=== PATIENT | female | born 1965 | race African-American/Black ===

== ENCOUNTER 2025-03-06 17:25 | Emergency (ER) | payer SELFPAY ==
[~2025-03-06] VITALS: Ht 167.6 cm; Wt 64.0 kg
[2025-03-06 17:31] VITALS: BP 138/89; PULSE 100; RESP 18; TEMP 98; O2SAT 98
[2025-03-06] MEDS: ACETAMINOPHEN 325MG TABLET PO ONE (18:13)
[2025-03-06] MEDS ORDERED: NAPR-677 MT (18:27)
== END 2025-03-06 19:15 | disposition home or self-care (01) ==
LOC: ER 17:25
DX: R51.9 Headache, unspecified (principal); R11.2 Nausea with vomiting, unspecified; R03.0 Elevated blood-pressure reading, without diagnosis of hypertension; Z85.6 Personal history of leukemia; Y00.XXXA Assault by blunt object, initial encounter; Y93.89 Activity, other specified; Y92.89 Other specified places as the place of occurrence of the external cause; Y99.8 Other external cause status
CPT/HCPCS: 70486; 99284

== ENCOUNTER 2025-03-06 20:49 | Inpatient (IN) | payer SELFPAY ==
[~2025-03-06] VITALS: Ht 162.6 cm; Wt 59.9 kg
[~2025-03-06 20:49] MED LIST: NAPR-677 MT
[2025-03-06] MEDS: ONDANSETRON HCL 4MG/2ML INJ IV ONE (22:47)
[2025-03-06] MEDS: SODIUM CHLORIDE 0.9% 1,000 ML IV ONE (22:47)
[2025-03-06 23:18] LABS: BASOPHILS % 0.7 % (0.0-2.0); EOSINOPHILS % 2.2 % (0.0-5.0); HEMATOCRIT. 38.8 % (36.0-48.0); HEMOGLOBIN. 12.2 g/dL (12.0-16.0); LYMPHOCYTES % 32.0 % (20.0-50.0); MEAN PLATELET VOLUME 7.6 fl (7.4-10.4); MONOCYTES % 9.8 % (2.0-8.0); NEUTROPHILS % 55.3 % (40.0-76.0); PLATELET 282 x1000/uL (130-400); RED BLOOD CELL COUNT 4.40 mill/uL (4.2-5.4); RED CELL DISTRIBUTION WIDTH 17.1 % (11.6-14.6)
[2025-03-06 23:35] LABS: CREATININE 0.5 mg/dL (0.6-1.0); UREA NITROGEN BLOOD 6 mg/dL (9-23)
[2025-03-06 23:36] LABS: PROTEIN TOTAL 7.5 g/dL (6.0-8.3)
[2025-03-06 23:37] LABS: ASPARTATE AMINOTRANSFERASE 173 IU/L (<34); BILIRUBIN DIRECT 0.2 mg/dL (<=3.0); TROPONIN I HIGH SENSITIVITY < 4 ng/L (3.0-34)
[2025-03-06 23:38] LABS: BILIRUBIN TOTAL 0.4 mg/dL (0.1-1.0)
[2025-03-07] MEDS: GUAIFENESIN 600MG ER TABLET PO NR (03:13)
[2025-03-07 03:19] VITALS: BP 137/87; PULSE 97; RESP 17; TEMP 37.0296
[2025-03-07] MEDS ORDERED: GUAIFENESIN 200MG/10ML SUGAR FREE UDC PO PRN (03:30)
[2025-03-07] MEDS ORDERED: DOCUSATE SODIUM 100MG CAPSULE PO PRN (03:30)
[2025-03-07] MEDS ORDERED: ONDANSETRON HCL 4MG/2ML INJ IV PRN (03:30)
[2025-03-07] MEDS ORDERED: ACETAMINOPHEN 325MG TABLET PO PRN (03:30)
[2025-03-07] MEDS ORDERED: MAGNESIUM/ALUMINUM HYDROXIDE/SIMETHICONE 30ML UDC PO PRN (03:30)
[2025-03-07] MEDS: SODIUM CHLORIDE 0.9% 1,000 ML IV SCH (03:50)
[2025-03-07 05:43] VITALS: PULSE 75; RESP 20; O2SAT 98
[2025-03-07] MEDS: IPRATROPIUM/ALBUTEROL 0.5-3(2.5)MG/3ML NEB HHN PRN (05:43)
[2025-03-07] MEDS ORDERED: AZITHROMYCIN 500MG/250ML 250 ML IV SCH (09:00)
[2025-03-07] MEDS: PANTOPRAZOLE SODIUM 40 MG/VIAL IV SCH (10:29)
[2025-03-07] MEDS: ENOXAPARIN 40MG/0.4ML SYR SUBCUT SCH (10:30)
[2025-03-07 12:00] VITALS: BP 131/77; PULSE 69; RESP 20; TEMP 37.1; O2SAT 100
[2025-03-07] MEDS: ACETAMINOPHEN 325MG TABLET PO PRN (13:20)
[2025-03-07] MEDS: IPRATROPIUM/ALBUTEROL 0.5-3(2.5)MG/3ML NEB HHN SCH (13:21)
[2025-03-07] MEDS: GUAIFENESIN/DM 600MG/30MG ER TAB 12HR PO PRN (13:21)
[2025-03-07 13:35] LABS: CREATININE 0.5 mg/dL (0.6-1.0); TROPONIN I HIGH SENSITIVITY < 4 ng/L (3.0-34); UREA NITROGEN BLOOD < 5 mg/dL (9-23)
[2025-03-07 13:36] LABS: LACTATE DEHYDROGENASE 252 IU/L (120-246)
[2025-03-07 13:37] LABS: PHOSPHORUS 3.3 mg/dL (2.5-4.9)
[2025-03-07 13:39] LABS: T4 FREE 0.87 ng/dL (0.89-1.76)
[2025-03-07 16:00] VITALS: BP_SYST 117; BP_SYST 125; BP_DIAS 81; BP_DIAS 82; PULSE 74; PULSE 76; RESP 18; RESP 19; TEMP 36.6; TEMP 37; O2SAT 100; O2SAT 99
[2025-03-07 19:47] LABS: INR 1.0
[2025-03-07 20:00] VITALS: BP 119/83; PULSE 85; RESP 17; TEMP 36.3; O2SAT 100
[2025-03-08] VITALS: BP 122/84; PULSE 72; RESP 18; TEMP 36.1; O2SAT 100
[2025-03-08 04:00] VITALS: BP 124/85; PULSE 62; RESP 18; TEMP 36.6; O2SAT 100
[2025-03-08 05:53] LABS: BASOPHILS % 0.7 % (0.0-2.0); EOSINOPHILS % 2.4 % (0.0-5.0); HEMATOCRIT. 35.3 % (36.0-48.0); HEMOGLOBIN. 11.2 g/dL (12.0-16.0); LYMPHOCYTES % 25.9 % (20.0-50.0); MEAN PLATELET VOLUME 8.0 fl (7.4-10.4); MONOCYTES % 11.8 % (2.0-8.0); NEUTROPHILS % 59.2 % (40.0-76.0); PLATELET 249 x1000/uL (130-400); RED BLOOD CELL COUNT 3.99 mill/uL (4.2-5.4); RED CELL DISTRIBUTION WIDTH 16.8 % (11.6-14.6)
[2025-03-08 05:54] LABS: INR 1.0
[2025-03-08 05:59] LABS: CREATININE 0.6 mg/dL (0.6-1.0); TRIGLYCERIDE 54 mg/dL (0-150); UREA NITROGEN BLOOD < 5 mg/dL (9-23)
[2025-03-08 06:00] LABS: LDL CHOLESTEROL 77 mg/dL (5-100)
[2025-03-08 08:00] VITALS: BP 124/74; PULSE 79; RESP 18; TEMP 36.5; O2SAT 100
[2025-03-08] MEDS ORDERED: DOCU-422 PO (09:46)
[2025-03-08] MEDS ORDERED: DEXTL PO (09:46)
[2025-03-08 11:23] VITALS: BP 124/74; PULSE 79; RESP 18; TEMP 97.7
== END 2025-03-08 11:56 | disposition home or self-care (01) | DRG 141 ==
LOC: ER 20:49 → 6EST 03-07 00:30 → EDBEDREQTM 03-07 00:45 → EDBEDREQDT 03-07 00:45 → EDBEDREQ 03-07 00:45 → ENRESERV 03-07 01:48 → 5WST 03-07 23:20
PROVIDERS: ADMIT Internal Medicine; ATTEND Internal Medicine
DX: J45.901 Unspecified asthma with (acute) exacerbation (principal); T66.XXXA Radiation sickness, unspecified, initial encounter; I10 Essential (primary) hypertension; F32.A Depression, unspecified; E78.5 Hyperlipidemia, unspecified; K30 Functional dyspepsia; F10.90 Alcohol use, unspecified, uncomplicated; Y90.9 Presence of alcohol in blood, level not specified; K59.00 Constipation, unspecified; R79.89 Other specified abnormal findings of blood chemistry; I25.10 Atherosclerotic heart disease of native coronary artery without angina pectoris; Z80.3 Family history of malignant neoplasm of breast; Z80.6 Family history of leukemia; Z86.73 Personal history of transient ischemic attack (TIA), and cerebral infarction without residual deficits; Z87.891 Personal history of nicotine dependence; Z90.49 Acquired absence of other specified parts of digestive tract
CPT/HCPCS: 36415; 71045; 74176; 76700; 80048; 80061; 80076; 83605; 83615; 83735; 84100; 84439; 84443; 84484; 85025; 93005; 94070; 94640; 94664; 96361; 96374; 98960; 99285; J0456; J1650; J2405; J2470; J7030